=== PATIENT | male | born 1945 | race Caucasian/White ===

== ENCOUNTER → 2017-12-08 | Outpatient (CLI) | payer MEDICARE ==
[~2017-12-08] MED LIST: CRESTOR 10MG10 MG PO; LORATADINE10 MG PO; PRINIVIL5 MG PO; SIMVASTATIN10 MG PO; VITAMINS
== END ==
LOC: COL.RAD 10:09
DX: Z13.6 Encounter for screening for cardiovascular disorders (principal)

== ENCOUNTER 2020-05-23 06:37 | Day surgery (SDC) | payer MEDICARE, OTHER ==
[~2020-05-23] VITALS: Ht 172.7 cm; Wt 89.8 kg
[2020-05-23] VITALS (11 sets, daily range): BP systolic 116–148; BP diastolic 62–80; PULSE 60–94; TEMP 97.3–98.2
[2020-05-23] MEDS ORDERED: COZAAR 50MG50 MG/TAB PO (07:25)
[2020-05-23] MEDS ORDERED: NORVASC 5MG5 MG/TAB PO ×2 (07:25→17:28)
[2020-05-23] MEDS ORDERED: MOBIC 7.5MG7.5 MG PO (07:26)
[2020-05-23] MEDS ORDERED: PROSCAR 5MG5 MG PO ×2 (07:27→07:33)
--- NOTE | 2020-05-23 07:36 | NUR ---
PATIENT DID NOT BRING A LIST OF MEDICATION. STATED HE ONLY TAKES 4 PRESCRIPTION MEDS. STATED HE DOES NOT TAKE THE URINARY MED ANYMORE.
[2020-05-23] MEDS ORDERED: PRINIVIL5 MG PO (07:41)
--- NOTE | 2020-05-23 13:34 | NUR ---
Pt is alert and oriented x3. Vital signs stable. Heart tones are present and normal, no murmur noted. Lung sounds are clear all lobes upon auscultation. Abdomen is flat, non-distended, and soft. Pt has CBI in. Pt states they "feel the need to go". Explained the indwelling bonner. Verbalized understanding. No complaints at this time.
[2020-05-23] MEDS ORDERED: FLOMAX 0.40.4 MG/CAP PO (13:44)
--- NOTE | 2020-05-23 13:52 | NUR ---
Patient alert and oriented, answers questions appropriately. See assessment. Dougherty catheter patent, draining clear ga urine. CBI infusing at moderate rate. Dougherty catheter to traction per Dr Borrero. No c/o at this time.
[2020-05-23] MEDS ORDERED: ZETIA 10MG TAB10 MG PO (17:28)
--- NOTE | 2020-05-23 20:30 | NUR ---
Initial shift asssessment done- Denies pain, has Dougherty with CBI, urine light red/clear--has traction to Dougherty,, requesting Melatonin for sleep--no other requests,,, pt ambulating up to sink to brush teeth , steady gait. VSS.
[2020-05-24 00:38] VITALS: BP 110/59; PULSE 64; TEMP 98.4
[2020-05-24 04:06] VITALS: BP 105/65; PULSE 63; TEMP 98.1
--- NOTE | 2020-05-24 05:45 | NUR ---
Quiet night, States did not sleep much- melatonin was given earlier but did not want a second one when offered around [place],, CBI slow-- Dougherty patent with light pink urine, traction remains on. VSS
--- NOTE | 2020-05-24 07:00 | NUR ---
CBI clamped at this time. Urine in bonner bag light ga, no clots noted.
[2020-05-24 08:00] VITALS: BP 121/65; PULSE 61; TEMP 97.5
--- NOTE | 2020-05-24 09:37 | NUR ---
Initial visit; Patient and his thanked Bus Transportation Manager for looking in on him and offering God's blessings.
--- NOTE | 2020-05-24 10:00 | NUR ---
Patient alert and oriented, answers questions apprpriately. See assessment. Dougherty catheter patent, to traction, draining clear ga urine. No c/o at this time.
--- NOTE | 2020-05-24 10:37 | NUR ---
Freight [employer]ier met with patient to discuss discharge planning. Patient lives alone in [place] but states his life partner, Nelly (ph#[phone]) stays with him often. Nelly is at bedside during intake. Patient sees Dr. Bowen for primary care and has most of his medications mailed to his home by [facility]. Patient also utilizes [facility] as needed. Patient does not use any DME and is independent with [facility]. Patient does not have Advance Directives but was interested in taking home DPOA-HC form. SW provided. Patient plans to return home upon discharge.
--- NOTE | 2020-05-24 11:01 | NUR ---
Pt alert and oriented x3. Vital signs stable. Heart tones present and normal, no murmur noted. Lung sounds clear all lobes upon auscultation. Abdomen is soft, non-distended, audible bowel sounds x4. Pt appears to be doing fine. Discussed the prime and pull and 6 bottle routine for today. Verbalized understanding. No complaints at this time.
--- NOTE | 2020-05-24 11:13 | NUR ---
CBI discontinued at 1030. 6 cup routine started. Pt had first urine output immediately following removal. Pt tolerated removal well. Pt up and walking after urinating.
[2020-05-24 11:58] VITALS: BP 121/75; PULSE 63; TEMP 97.9
--- NOTE | 2020-05-24 17:05 | NUR ---
Discharge instructions reviewed with patient and friend. Discharged ambulatory to auto/home with spouse at 1650.
== END 2020-05-24 16:50 | disposition home or self-care (01) ==
LOC: SDCO 06:37 → SURG 12:48 → SDCO 05-24 16:50
DX: N40.1 Benign prostatic hyperplasia with lower urinary tract symptoms (principal); N13.8 Other obstructive and reflux uropathy; R39.12 Poor urinary stream; R35.1 Nocturia; R39.14 Feeling of incomplete bladder emptying; E78.00 Pure hypercholesterolemia, unspecified; I10 Essential (primary) hypertension; E78.5 Hyperlipidemia, unspecified; J45.909 Unspecified asthma, uncomplicated; M79.7 Fibromyalgia; M19.90 Unspecified osteoarthritis, unspecified site; G89.29 Other chronic pain; M54.9 Dorsalgia, unspecified; Z20.822 Contact with and (suspected) exposure to COVID-19; Z79.899 Other long term (current) drug therapy
CPT/HCPCS: OP; J0690; J1100; J2405; J2704; J3010; J7120

== ENCOUNTER 2021-08-29 09:00 | Outpatient (RCR) | payer MEDICARE, OTHER ==
[~2021-08-29 09:00] MED LIST changes: +COZAAR 50MG50 MG/TAB PO; +FLOMAX 0.40.4 MG/CAP PO; +MOBIC 7.5MG7.5 MG PO; +NORVASC 5MG5 MG/TAB PO; +PROSCAR 5MG5 MG PO; +ZETIA 10MG TAB10 MG PO
== END 2021-09-09 | disposition home or self-care (01) ==
LOC: WSOT
DX: M79.642 Pain in left hand (principal); M79.641 Pain in right hand

== ENCOUNTER 2022-04-08 11:36 | Outpatient (RCR) | payer MEDICARE, OTHER ==
[~2022-04-08 11:36] MED LIST changes: +ASPIRIN E.C. 8181 MG PO; +CENTRUM MEN'S; +EFFIENT10 MG PO; +IBU400 MG PO; +LIPITOR 80MG80 MG PO; +NEURIVA ORIGIN1 EACH PO; +TYLENOL PM EXTR1 TA1 PO; +ZYRTEC 10MG10 MG PO; +[UNRECOGNIZED DRUG - OTHER] PO
== END 2022-04-09 | disposition home or self-care (01) ==
LOC: COL.CR
DX: Z48.812 Encounter for surgical aftercare following surgery on the circulatory system (principal); Z95.5 Presence of coronary angioplasty implant and graft